=== PATIENT | male | born 1955 | race Two or more races ===

== ENCOUNTER 2018-06-03 13:23 | Day surgery (SDC) | payer OTHER | END 2018-06-03 16:33 | disposition home or self-care (01) | LOC: GIL 13:23 | DX: B19.20 Unspecified viral hepatitis C without hepatic coma (principal); D64.9 Anemia, unspecified; I10 Essential (primary) hypertension; E11.9 Type 2 diabetes mellitus without complications; E66.9 Obesity, unspecified; Z68.25 Body mass index [BMI] 25.0-25.9, adult; Z79.84 Long term (current) use of oral hypoglycemic drugs | CPT/HCPCS: 43235; 82962 ==